=== PATIENT | female | born 1955 | race Asian ===

== ENCOUNTER 2022-07-09 13:11 | Inpatient (IN) | payer OTHER ==
[2022-07-09] MEDS ORDERED: SODIUM CHLORIDE 1,000 ML IV STA (14:12)
[2022-07-09 15:14] LABS: VENOUS BASE EXCESS -3.1 mmol/L (-2-2); VENOUS O2 SATURATION 66.7 % (70-80); VENOUS PCO2 44.6 mmHg (38-52); VENOUS PH 7.33 (7.310-7.410)
[2022-07-09 15:21] LABS: BASO % 0.7 % (0-2.0); EOS % 3.1 % (0-4.5); HEMATOCRIT 43.6 % (32.4-45.2); LYMPH % 17.6 % (8-40); MCHC 34.4 g/dl (32.0-36.0); MEAN CELL VOLUME 84.4 fl (80-96); MEAN PLT VOLUME 8.8 fl (7.5-11.1); MONO % 5.6 % (3.8-10.2); PLATELET COUNT 280 10^3/uL (134-434); RBC 5.16 M/mm3 (3.60-5.2); RDW 13.9 % (11.6-15.6); WHITE BLOOD COUNT 10.5 K/mm3 (4.0-10.0)
[2022-07-09 15:49] LABS: CHLORIDE 93 mmol/L (98-107); SODIUM 128 mmol/L (136-145)
[2022-07-09 15:52] LABS: CALCIUM 9.8 mg/dL (8.5-10.1)
[2022-07-09 15:53] LABS: ANION GAP 12 MMOL/L (8-16); BLOOD UREA NITROGEN 33.2 mg/dL (7-18); CO2 23 mmol/L (21-32)
[2022-07-09 15:55] LABS: CREATININE 1.6 mg/dL (0.55-1.3)
[2022-07-09 15:56] LABS: SGOT/AST 27 U/L (15-37); SGPT/ALT 42 U/L (13-61)
[2022-07-09 15:57] LABS: BILIRUBIN,TOTAL 1.1 mg/dL (0.2-1); TOT PROT 9.1 g/dl (6.4-8.2)
[2022-07-09 15:58] LABS: ALK PHOS 92 U/L (45-117); GLUCOSE,RANDOM 689 mg/dL (74-106)
[2022-07-09] MEDS ORDERED: INSULIN REGULAR HUMAN 100 UNITS/ML *VIAL SQ ONE (16:17)
[2022-07-09] MEDS ORDERED: SODIUM CHLORIDE 1,000 ML with POTASSIUM CHLORIDE 40 MEQ IV SCH (17:30)
[2022-07-09] MEDS ORDERED: INSULIN (NOVOLOG) ASPART 100 UNITS/ML 10ML VIAL SQ ONE (17:35)
[2022-07-09] MEDS ORDERED: INSULIN (LEVEMIR) 100 UNITS/ML UNITS SQ ONE (17:36)
[2022-07-09] MEDS: POTASSIUM CHLORIDE 40 MEQ in SODIUM CHLORIDE 1,000 ML IV SCH (18:47)
[2022-07-09 19:45] LABS: URINE APPEARANCE CLEAR; URINE BILIRUBIN NEGATIVE (NEGATIVE); URINE COLOR YELLOW; URINE GLUCOSE (UA) 3+ (NEGATIVE); URINE KETONE 1+ (NEGATIVE); URINE LEUK ESTERASE NEGATIVE (NEGATIVE); URINE NITRITE NEGATIVE (NEGATIVE); URINE PROTEIN NEGATIVE (NEGATIVE); URINE UROBILINOGEN 0.2 mg/dL (0.2-1.0)
[2022-07-09] MEDS: INSULIN SLIDING SCALE (NOVOLOG) 1 VIAL SQ SCH (21:37)
[2022-07-09] MEDS: INSULIN (LEVEMIR) 100 UNITS/ML UNITS SQ SCH (21:37)
[2022-07-09] MEDS ORDERED: INSULIN (LEVEMIR) 100 UNITS/ML UNITS SQ SCH (22:00)
[2022-07-09 22:02] LABS: ALBUMIN 3.4 g/dl (3.4-5.0); BLOOD UREA NITROGEN 27.4 mg/dL (7-18); CALCIUM 8.4 mg/dL (8.5-10.1)
[2022-07-09 22:05] LABS: CREATININE 1.5 mg/dL (0.55-1.3)
[2022-07-09 22:07] LABS: BILIRUBIN,TOTAL 0.5 mg/dL (0.2-1)
[2022-07-09 22:08] LABS: TOT PROT 7.8 g/dl (6.4-8.2)
[2022-07-10 02:44] VITALS: BMI 27.8
[2022-07-10] MEDS ORDERED: INSULIN (NOVOLOG) ASPART 100 UNITS/ML 10ML VIAL SQ SCH (07:00)
[2022-07-10] MEDS: POTASSIUM CHLORIDE 40 MEQ in SODIUM CHLORIDE 1,000 ML IV SCH (07:00)
[2022-07-10] MEDS: INSULIN (LEVEMIR) 100 UNITS/ML UNITS SQ SCH ×2 (07:48→22:22)
[2022-07-10] MEDS: INSULIN SLIDING SCALE (NOVOLOG) 1 VIAL SQ SCH ×4 (07:51→22:22)
[2022-07-10 08:48] LABS: HEMATOCRIT 36.6 % (32.4-45.2); MCH 29.5 pg (25.7-33.7); MCHC 35.6 g/dl (32.0-36.0); MEAN CELL VOLUME 82.8 fl (80-96); MEAN PLT VOLUME 8.5 fl (7.5-11.1); PLATELET COUNT 213 10^3/uL (134-434); RBC 4.42 M/mm3 (3.60-5.2); RDW 14.1 % (11.6-15.6); WHITE BLOOD COUNT 7.3 K/mm3 (4.0-10.0)
[2022-07-10] MEDS: LOSARTAN POTASSIUM 50 MG TABLET PO SCH (09:14)
[2022-07-10] MEDS: LEVOTHYROXINE NA 112 MCG TABLET (FP) PO SCH (09:14)
[2022-07-10] MEDS: ROSUVASTATIN CA 10 MG TABLET PO SCH (09:14)
[2022-07-10] MEDS: ENOXAPARIN NA (PORCINE) 40 MG/0.4 ML DISP.SYRIN SQ SCH (09:14)
[2022-07-10 09:51] LABS: BLOOD UREA NITROGEN 22.3 mg/dL (7-18); CALCIUM 8.5 mg/dL (8.5-10.1)
[2022-07-10 09:52] LABS: ALBUMIN 3.2 g/dl (3.4-5.0)
[2022-07-10 09:54] LABS: CREATININE 1.3 mg/dL (0.55-1.3); PHOSPHOROUS 2.2 mg/dL (2.5-4.9)
[2022-07-10 09:55] LABS: BILIRUBIN,TOTAL 0.8 mg/dL (0.2-1); TOT PROT 7.4 g/dl (6.4-8.2)
[2022-07-10] MEDS ORDERED: INSULIN (NOVOLOG) ASPART 100 UNITS/ML 10ML VIAL ONE (11:10)
[2022-07-10] MEDS: INSULIN (NOVOLOG) ASPART 100 UNITS/ML 10ML VIAL SQ SCH ×2 (11:11→17:34)
[2022-07-11 04:20] VITALS: RESP 20
[2022-07-11] MEDS: INSULIN (NOVOLOG) ASPART 100 UNITS/ML 10ML VIAL SQ SCH ×2 (07:07→11:09)
[2022-07-11] MEDS: INSULIN (LEVEMIR) 100 UNITS/ML UNITS SQ SCH (07:07)
[2022-07-11] MEDS: INSULIN SLIDING SCALE (NOVOLOG) 1 VIAL SQ SCH ×2 (07:08→11:10)
[2022-07-11] MEDS: ROSUVASTATIN CA 10 MG TABLET PO SCH (09:03)
[2022-07-11] MEDS: LEVOTHYROXINE NA 112 MCG TABLET (FP) PO SCH (09:03)
[2022-07-11] MEDS: ENOXAPARIN NA (PORCINE) 40 MG/0.4 ML DISP.SYRIN SQ SCH (09:03)
[2022-07-11] MEDS: LOSARTAN POTASSIUM 50 MG TABLET PO SCH (09:03)
[2022-07-11] MEDS ORDERED: INSULIN (NOVOLOG) ASPART 100 UNITS/ML 10ML VIAL ONE (11:07)
[2022-07-11] MEDS ORDERED: INSULIN (NOVOLOG) ASPART 100 UNITS/ML 10ML VIAL SQ SCH (13:19)
[2022-07-11 15:13] VITALS: TEMP 98.2
[2022-07-11 15:31] VITALS: BP 148/77; PULSE 108
== END 2022-07-11 16:39 | disposition home or self-care (01) | DRG 637 ==
LOC: JER 13:11 → JERBED 14:46 → J8W 21:49
PROVIDERS: ADMIT Internal Medicine; ATTEND Nurse Practitioner Acute Care
DX: E11.65 Type 2 diabetes mellitus with hyperglycemia (principal); E11.00 Type 2 diabetes mellitus with hyperosmolarity without nonketotic hyperglycemic-hyperosmolar coma (NKHHC); M10.9 Gout, unspecified; I10 Essential (primary) hypertension; E78.5 Hyperlipidemia, unspecified; Z79.4 Long term (current) use of insulin
CPT/HCPCS: 0241U-QW; 36415; 71046-TC-FY; 80053; 81003; 82010; 82803; 82962; 83735; 84100; 84484; 85025; 85027; 87077; 87086; 87186; 93005; 93010; 99285-25